=== PATIENT | male | born 1990 | race American Indian/Alaskan Native ===

== ENCOUNTER 2016-12-17 22:26 | Emergency (ER) | payer SELFPAY ==
[2016-12-17] MEDS ORDERED: MOTRIN ONE (22:38)
[2016-12-17] MEDS ORDERED: MOTRIN PO ONE (22:40)
[2016-12-18] MEDS ORDERED: ROXICODONE PO ONE (02:22)
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
--- NOTE | 2016-12-18 04:13 | Ultrasound Report ---
FINAL REPORT PROCEDURE: US TESTICULAR DOPPLER COMP TECHNIQUE: Real-time wilde-scale and color flow Doppler sonography in multiple planes of the scrotum, testicles, and epididymes was performed. Velocity spectral waveform analysis Doppler imaging of the arterial inflow and venous outflow of the testicles was performed with image documentation. CPT 74378 and 69272 HISTORY: testicular pain COMPARISON: No prior studies are available for comparison. FINDINGS: RIGHT TESTICLE: Size: 4.1 x 2.1 x 2.9 cm . Appearance: Normal size and echotexture . Arterial blood flow: Normal spectral waveforms, flow velocities and color flow images.. Venous blood flow: Normal spectral waveforms and color flow images. Right epididymis: Normal size and echotexture . Hydrocele: None . LEFT TESTICLE Size: 4.1 x 2.3 x 3 cm . Appearance: Normal size and echotexture . Arterial blood flow: Normal spectral waveforms, flow velocities and color flow images.. Venous blood flow: Normal spectral waveforms and color flow images. Leftepididymis: Normal size and echotexture . Hydrocele: None . IMPRESSION: Normal Examination
[2016-12-18 04:57] VITALS: BP 116/68
== END 2016-12-18 04:57 | disposition home or self-care (01) ==
LOC: ED 22:26
DX: M54.2 Cervicalgia (principal); M54.5 Low back pain; R51 Headache; V49.59XA Passenger injured in collision with other motor vehicles in traffic accident, initial encounter; X58.XXXA Exposure to other specified factors, initial encounter; Y93.9 Activity, unspecified; Y92.9 Unspecified place or not applicable; Y99.9 Unspecified external cause status
CPT/HCPCS: 93975; 99283

== ENCOUNTER 2021-10-21 22:57 | Emergency (ER) | payer OTHER ==
[2021-10-21 23:02] VITALS: BP 135/54
[2021-10-22] MEDS ORDERED: IPRATROPIUM/ALBUTEROL SULFATE 3 ML AMPUL.NEB IH ONE (03:13)
--- NOTE | 2021-10-22 08:01 | Emergency Department Report ---
- General Chief complaint: Skin/Abscess/Foreign Body Stated complaint: EARBUD CUSHION STUCK IN RIGHT EAR Time Seen by Provider: 10/22/21 07:47 Source: patient Mode of arrival: Ambulatory Limitations: No Limitations - History of Present Illness Initial comments: 31-year-old black male with no past medical history presents to the emergency department for evaluation of foreign body to right ear. He states that he was using his earbuds and 1 of those accidentally came off in his right ear and he has been unable to retrieve it. He states that ear is now having some minimal throbbing but no drainage noted. He denies fever. complaint: foreign body -: hour(s) (10) Severity scale (0 -10): 0 Treatments Prior to Arrival: none - Related Data Previous Rx's Medication Instructions Recorded Last Taken Type Naproxen [Naprosyn TAB] 500 mg PO BID #30 tablet 12/18/16 Unknown Rx methOCARBAMOL [Robaxin TAB] 500 mg PO BID #30 tab 12/18/16 Unknown Rx Allergies Allergy/AdvReac Type Severity Reaction Status Date / Time acetaminophen [From Tylenol] Allergy Seizure Verified 12/17/16 22:41 Abscess Boil HPI - HPI Chief Complaint: Skin/Abscess/Foreign Body Stated Complaint: EARBUD CUSHION STUCK IN RIGHT EAR Time Seen by Provider: 10/22/21 07:47 Home Medications: Previous Rx's Medication Instructions Recorded Last Taken Type Naproxen [Naprosyn TAB] 500 mg PO BID #30 tablet 12/18/16 Unknown Rx methOCARBAMOL [Robaxin TAB] 500 mg PO BID #30 tab 12/18/16 Unknown Rx Allergies/Adverse Reactions: Allergies Allergy/AdvReac Type Severity Reaction Status Date / Time acetaminophen [From Tylenol] Allergy Seizure Verified 12/17/16 22:41 ED Review of Systems ROS: Stated complaint: EARBUD CUSHION STUCK IN RIGHT EAR Other details as noted in HPI Comment: All other systems reviewed and negative Constitutional: denies: chills, fever ENT: other (Foreign body right ear canal). denies: ear pain, dental pain Respiratory: denies: shortness of breath Cardiovascular: denies: chest pain Gastrointestinal: denies: nausea, vomiting Neurological: denies: headache ED Past Medical Hx - Social History Smoking Status: Never Smoker Substance Use Type: None - Medications Home Medications: Home Medications Medication Instructions Recorded Confirmed Last Taken Type Naproxen [Naprosyn TAB] 500 mg PO BID #30 tablet 12/18/16 Unknown Rx methOCARBAMOL [Robaxin TAB] 500 mg PO BID #30 tab 12/18/16 Unknown Rx ED Physical Exam - General Limitations: No Limitations General appearance: alert, in no apparent distress - Head Head exam: Present: atraumatic, normocephalic - Eye Eye exam: Present: normal appearance. Absent: conjunctival injection - ENT ENT exam: Absent: normal exam - Expanded ENT Exam Expanded TM/Canal exam: Foreign Body: Right TM - Neck Neck exam: Present: normal inspection, full ROM. Absent: tenderness - Respiratory Respiratory exam: Present: normal lung sounds bilaterally. Absent: respiratory distress, wheezes, rales, rhonchi, stridor, chest wall tenderness - Cardiovascular Cardiovascular Exam: Present: regular rate, normal heart sounds - GI/Abdominal GI/Abdominal exam: Absent: distended - Extremities Exam Extremities exam: Present: normal inspection - Back Exam Back exam: Present: normal inspection - Neurological Exam Neurological exam: Present: alert, oriented X3 - Psychiatric Psychiatric exam: Present: normal affect, normal mood - Skin Skin exam: Present: warm, dry, intact, normal color ED Course Vital Signs 10/21/21 23:00 Temperature 98.4 F Pulse Rate 75 Respiratory 18 Rate Blood Pressure 135/54 O2 Sat by Pulse 98 Oximetry - Foreign Body Removal Ear Location: ear canal (R) Foreign Body Suspected: plastic bead/other plasti (End piece of ear bud) Foreign Body Removed: yes Foreign Body Removal Technique: forceps Tympanic Membrane Intact: Yes Patient Tolerated Procedure: well, no complications Complications: none Additional Comments: Plastic earbud removed totally intact. ED Medical Decision Making - Medical Decision Making 31-year-old black male with no past medical history presents to the emergency department for evaluation of foreign body to right ear. He states that he was using his earbuds and 1 of those accidentally came off in his right ear and he has been unable to retrieve it. He states that ear is now having some minimal throbbing but no drainage noted. He denies fever. Plastic earbud removed with forceps totally intact. Patient tolerated well. He was advised to follow-up with primary care provider if any worsening symptoms. He verbalized understanding of and agreement with plan of care. Critical care attestation.: If time is entered above; I have spent that time in minutes in the direct care o f this critically ill patient, excluding procedure time. ED Disposition Clinical Impression: Foreign body of ear, right Qualifiers: Encounter type: initial encounter Qualified Code(s): T16.1XXA - Foreign body in right ear, initial encounter Disposition: HOME / SELF CARE / HOMELESS Is pt being admited?: No Does the pt Need Aspirin: No Condition: Stable Instructions: Ear Foreign Body, Dtcm-[id number] Additional Instructions: Follow-up with primary care provider as needed. Referrals: IRAJ RIZO MD [Referring] - 3-5 Days Forms: Work/School Release Form(ED)
== END 2021-10-22 08:10 | disposition home or self-care (01) ==
LOC: ED 22:57
DX: T16.1XXA Foreign body in right ear, initial encounter (principal); X58.XXXA Exposure to other specified factors, initial encounter; Y93.89 Activity, other specified; Y92.89 Other specified places as the place of occurrence of the external cause; Y99.8 Other external cause status; Z88.6 Allergy status to analgesic agent
CPT/HCPCS: 99282